=== PATIENT | male | born 1960 | race Caucasian/White ===

== ENCOUNTER → 2017-12-19 | Outpatient (CLI) | payer SELFPAY ==
[2017-12-19 13:26] LABS: ABSOLUTE BASOPHILS # (AUTO) 0.1 10^3/uL (0.0-0.2); ABSOLUTE EOSINOPHILS # (AUTO) 0.3 10^3/uL (0.0-0.6); ABSOLUTE LYMPHOCYTES (AUTO) 2.1 10^3/uL (0.5-4.7); ABSOLUTE MONOCYTES (AUTO) 0.5 10^3/uL (0.1-1.4); ABSOLUTE NEUT (AUTO) 4.4 10^3/uL (1.7-8.2); BASOPHILS % (AUTO) 1.1 % (0-2); HEMATOCRIT 46.4 % (37.9-51.0); HEMOGLOBIN 15.7 g/dL (13.5-17.0); LYMPHOCYTES % (AUTO) 28.5 % (13-45); MEAN CORPUSCULAR HGB CONC 33.9 g/dL (32.0-36.0); MEAN CORPUSCULAR VOLUME 85 fl (80-97); MONOCYTES % (AUTO) 7.2 % (3-13); PLATELET COUNT 227 10^3/uL (150-450); RED BLOOD COUNT 5.44 10^6/uL (4.35-5.55); RED CELL DISTRIBUTION WIDTH 14.7 % (11.5-14.0); SEGMENTED NEUTROPHILS % (AUTO) 59.2 % (42-78); TOTAL CELLS COUNTED % (AUTO) 100 %; WHITE BLOOD COUNT 7.5 10^3/uL (4.0-10.5)
[2017-12-19 13:44] LABS: ALANINE AMINOTRANSFERASE 24 U/L (21-72); ALBUMIN 3.9 g/dL (3.5-5.0); ALKALINE PHOSPHATASE 79 U/L (38-126); ANION GAP 10 (5-19); ASPARTATE AMINO TRANSFERASE 15 U/L (17-59); BILIRUBIN,DIRECT 0.6 mg/dL (0.0-0.4); BILIRUBIN,TOTAL 1.5 mg/dL (0.2-1.3); BLOOD UREA NITROGEN 14 mg/dL (7-20); CALCIUM 9.6 mg/dL (8.4-10.2); CARBON DIOXIDE 26 mmol/L (22-30); CHLORIDE 102 mmol/L (98-107); CHOLESTEROL 134.29 mg/dL (0-200); GLUCOSE 244 mg/dL (75-110); POTASSIUM 4.3 mmol/L (3.6-5.0); SODIUM 138.2 mmol/L (137-145); TOTAL PROTEIN 7.1 g/dL (6.3-8.2); TRIGLYCERIDES 120 mg/dL (<150)
[2017-12-19 13:55] LABS: DIRECT LDL 89 mg/dL (<100)
--- NOTE | 2017-12-19 14:18 | RADIOLOGY REPORT (SQ) ---
EXAM DESCRIPTION: SHOULDER RIGHT 2 OR MORE VIEWS COMPLETED DATE/TIME: 12/19/2017 12:54 pm REASON FOR STUDY: M25.511 PAIN IN RIGHT SHOULDER M25.511 PAIN IN RIGHT SHOULDER COMPARISON: None. NUMBER OF VIEWS: Three views. TECHNIQUE: Internal rotation, external rotation, and Y view images acquired of the right shoulder. LIMITATIONS: None. FINDINGS: MINERALIZATION: Normal. BONES: No acute fracture or dislocation. No worrisome bone lesions. No significant osteophytes. GLENOHUMERAL JOINT: No significant findings. ACROMIOCLAVICULAR JOINT: No large osteophytes. SOFT TISSUES: No calcifications. VISUALIZED RIBS, SPINE, AND LUNG: No other significant finding. OTHER: No other significant finding. IMPRESSION: NEGATIVE STUDY OF THE RIGHT SHOULDER. NO EXPLANATION FOR PAIN. TECHNICAL DOCUMENTATION: JOB ID: [id number] [employer]- All Rights Reserved Reading location - IP/workstation name: [email or web address]
== END ==
LOC: RAD 12:38
DX: Z00.00 Encounter for general adult medical examination without abnormal findings (principal); M25.511 Pain in right shoulder
CPT/HCPCS: 36415; 80053; 80061; 83036; 84153; 84443; 85025

== ENCOUNTER → 2018-09-12 | Outpatient (CLI) | payer OTHER | LOC: OD 10:41 | DX: E11.8 Type 2 diabetes mellitus with unspecified complications (principal) | CPT/HCPCS: 36415; 83036 ==

== ENCOUNTER → 2018-12-20 | Outpatient (CLI) | payer OTHER ==
[2018-12-20 09:49] LABS: ABSOLUTE BASOPHILS # (AUTO) 0.1 10^3/uL (0.0-0.2); ABSOLUTE EOSINOPHILS # (AUTO) 0.2 10^3/uL (0.0-0.6); ABSOLUTE LYMPHOCYTES (AUTO) 1.8 10^3/uL (0.5-4.7); ABSOLUTE MONOCYTES (AUTO) 0.6 10^3/uL (0.1-1.4); ABSOLUTE NEUT (AUTO) 4.7 10^3/uL (1.7-8.2); BASOPHILS % (AUTO) 0.9 % (0-2); EOSINOPHILS % (AUTO) 2.6 % (0-6); HEMATOCRIT 43.6 % (37.9-51.0); HEMOGLOBIN 14.6 g/dL (13.5-17.0); LYMPHOCYTES % (AUTO) 24.6 % (13-45); MEAN CORPUSCULAR HEMOGLOBIN 30.7 pg (27.0-33.4); MEAN CORPUSCULAR HGB CONC 33.5 g/dL (32.0-36.0); MEAN CORPUSCULAR VOLUME 92 fl (80-97); MONOCYTES % (AUTO) 7.6 % (3-13); PLATELET COUNT 244 10^3/uL (150-450); RED BLOOD COUNT 4.77 10^6/uL (4.35-5.55); RED CELL DISTRIBUTION WIDTH 15.3 % (11.5-14.0); SEGMENTED NEUTROPHILS % (AUTO) 64.3 % (42-78); TOTAL CELLS COUNTED % (AUTO) 100 %; WHITE BLOOD COUNT 7.3 10^3/uL (4.0-10.5)
[2018-12-20 10:05] LABS: GLUCOSE 120 mg/dL (75-110); POTASSIUM 4.7 mmol/L (3.6-5.0); TOTAL PROTEIN 7.1 g/dL (6.3-8.2)
[2018-12-20 10:06] LABS: ALANINE AMINOTRANSFERASE 13 U/L (21-72); ALKALINE PHOSPHATASE 62 U/L (38-126); ANION GAP 10 (5-19); ASPARTATE AMINO TRANSFERASE 13 U/L (17-59); BILIRUBIN,DIRECT 0.5 mg/dL (0.0-0.4); BILIRUBIN,TOTAL 1.1 mg/dL (0.2-1.3); BLOOD UREA NITROGEN 15 mg/dL (7-20); CALCIUM 10.2 mg/dL (8.4-10.2); CARBON DIOXIDE 28 mmol/L (22-30); CHLORIDE 105 mmol/L (98-107); SODIUM 142.8 mmol/L (137-145)
== END ==
LOC: CCC 09:10
DX: Z00.00 Encounter for general adult medical examination without abnormal findings (principal)
CPT/HCPCS: 36415; 80053; 83036; 84443; 85025

== ENCOUNTER 2019-04-02 16:22 | Inpatient (IN) | payer SELFPAY ==
--- NOTE | 2019-04-02 17:22 | ER Document Report ---
ED Medical Screen (RME) - General Chief Complaint: Chest Pain Stated Complaint: CHEST PAIN Time Seen by Provider: 04/02/19 16:54 Primary Care Provider: [facility] [Primary Care Provider] - Follow up as needed Mode of Arrival: Wheelchair Information source: Patient Notes: Patient is a 4-year-old male with past medical history of quadruple bypass and multiple stent placements presented to the emergency department chief complaint of midsternal chest pain with nausea and shortness of breath that began around 1 PM this afternoon. Patient reports he does not have insurance so he has not seen a police detective in some time. He states that most [place]. He states the pain feels similar to when he had his heart attacks in the past. Exam: Patient calm, cooperative, alert and answering all questions appropriately. No acute distress noted. Heart sounds S1-S2 present with no ectopy noted. Lung sounds clear and equal bilaterally. I have greeted and performed a rapid initial assessment of this patient. A comprehensive ED assessment and evaluation of the patient, analysis of test results and completion of the medical decision making process will be conducted by additional ED providers. I have specifically instructed the patient or family members with the patient to immediately return to any nursing staff jeffrey uld anything change in the patient's condition or with their chief complaint. This medical record was dictated with voice recognizing software. There may be grammatical, syntax errors that are unintended. TRAVEL OUTSIDE OF THE [place] IN LAST 30 DAYS: No - Related Data Allergies/Adverse Reactions: aspirin Allergy (Mild, Verified 04/02/19 16:25) Past Medical History - Social History Chew tobacco use (# tins/day): No Frequency of alcohol use: None Drug Abuse: None Physical Exam - Vital signs Vitals: Temp Pulse Resp BP Pulse Ox 98.3 F 80 21 H 109/83 94 04/02/19 16:37 04/02/19 16:37 04/02/19 16:37 04/02/19 16:37 04/02/19 16:37 Course - Vital Signs Vital signs: Temp Pulse Resp BP Pulse Ox 98.3 F 80 21 H 109/83 94 04/02/19 16:37 04/02/19 16:37 04/02/19 16:37 04/02/19 16:37 04/02/19 16:37 Doctor's Discharge - Discharge Referrals: [facility] [Primary Care Provider] - Follow up as needed
[2019-04-02] MEDS ORDERED: NITROGLYCERIN 0.4 MG/TAB 25 TAB/BOTTLE SL PRN (18:22)
--- NOTE | 2019-04-02 18:29 | ER Document Report ---
ED General - General Chief Complaint: Chest Pain Stated Complaint: CHEST PAIN Time Seen by Provider: 04/02/19 16:54 Primary Care Provider: [facility] [NO LOCAL MD] - Follow up as needed Mode of Arrival: Wheelchair Notes: 58-year-old male with history of ICD/pacemaker, congestive heart failure and multiple MIs all in [place], presents with burning chest pain that goes to his back gradual onset and shortness of breath. Started earlier today is not sure what time. Is been constant. He is also had decreased exercise tolerance and increased leg swelling the point where he sits in a recliner all day. He does not have a primary care or ribber here. He states compliance with meds including water pill. Unknown last catheterization. TRAVEL OUTSIDE OF THE [place] IN LAST 30 DAYS: No - Related Data Allergies/Adverse Reactions: aspirin Allergy (Mild, Verified 04/02/19 17:21) Anaphylaxis Penicillins Allergy (Verified 04/02/19 17:21) Past Medical History - General Information source: Patient - Social History Smoking Status: Former Smoker Chew tobacco use (# tins/day): No Frequency of alcohol use: None Drug Abuse: None Family History: None Patient has suicidal ideation: No Patient has homicidal ideation: No Review of Systems - Review of Systems Notes: REVIEW OF SYSTEMS GEN: Denies fever, chills, weight loss ENT: Denies sore throat, nasal discharge, ear pain EYES: Denies blurry vision, eye pain, discharge CV: See HPI RESP: See HPI GI: Denies abdominal pain, nausea, vomiting, diarrhea MSK: Denies joint pain/swelling, edema, SKIN: Denies rash, skin lesions LYMPH: Denies swollen glands/lymph nodes NEURO: Denies headache, focal weakness or numbness, dizziness PSYCH: Denies depression, suicidal or homicidal ideation PHYSICAL EXAMINATION General: No acute distress, well-nourished Head: Atraumatic, normocephalic ENT: Mouth normal, oropharynx moist, no exudates or tonsillar enlargement Eyes: Conjunctiva normal, pupils equal, lids normal Neck: No JVD, supple, no guarding CVS: Normal rate, regular rhythm, no murmurs Resp: Sounds left GI: Nondistended, soft, no tenderness to palpation, no rebound or guarding Ext: No deformities, mild bilateral pitting edema, normal range of motion in upper and lower ext Back: No CVA or midline TTP Skin: No rash, warm Lymphatic: No lymphadeopathy noted Neuro: Awake, alert. Face symmetric. GCS 15. Physical Exam - Vital signs Vitals: Temp Pulse Resp BP Pulse Ox 98.3 F 80 21 H 109/83 94 04/02/19 16:37 04/02/19 16:37 04/02/19 16:37 04/02/19 16:37 04/02/19 16:37 Course - Re-evaluation Re-evalutation: 04/02/19 19:44 Patient with CHF and ICD presents with worsening dyspnea on exertion orthopnea, recliner confined. Also burning chest pain similar to past MIs. ECG low voltage but no acute ischemia. Troponin normal. BNP grossly elevated. Left pleural effusion and cardiomegaly on x-ray. Symptoms not consistent with PE or pneumonia. No fever no white count. Bedside echo shows decreased EF and left pleural effusion. Discussed with Vito Simons for admission, IV Lasix given. - Vital Signs Vital signs: Temp Pulse Resp BP Pulse Ox 98.3 F 80 25 H 123/88 H 92 04/02/19 16:37 04/02/19 16:37 04/02/19 19:01 04/02/19 19:01 04/02/19 19:01 - Laboratory Result Diagrams: 04/02/19 17:40 04/02/19 17:40 Laboratory results interpreted by me: 04/02/19 04/02/19 04/02/19 17:40 17:40 17:40 RDW 16.3 H Sodium 136.7 L Chloride 96 L Total Bilirubin 2.4 H Direct Bilirubin 1.0 H NT-Pro-B Natriuret Pep 7800 H - Diagnostic Test Radiology reviewed: Image reviewed, Reports reviewed Discharge - Discharge Clinical Impression: Recurrent left pleural effusion Congestive heart failure (CHF) Qualifiers: Heart failure type: unspecified Heart failure chronicity: chronic Qualified Code(s): I50.9 - Heart failure, unspecified Condition: Fair Disposition: ADMITTED INPATIENT Admitting Provider: Ronak (Hospitalist) Unit Admitted: IMCU Referrals: [facility] [NO LOCAL MD] - Follow up as needed
--- NOTE | 2019-04-02 18:40 | RADIOLOGY REPORT (SQ) ---
EXAM DESCRIPTION: CHEST SINGLE VIEW COMPLETED DATE/TIME: 04/02/2019 6:24 pm REASON FOR STUDY: chest pain, shortness of breath COMPARISON: None EXAM PARAMETERS: NUMBER OF VIEWS: One view. TECHNIQUE: Single frontal radiographic view of the chest acquired. RADIATION DOSE: NA LIMITATIONS: None. FINDINGS: LUNGS AND PLEURA: Marked opacification the left base. The left hemidiaphragm is indistinc t. Cannot exclude a large left pleural effusion. MEDIASTINUM AND HILAR STRUCTURES: No masses. Contour normal. HEART AND VASCULAR STRUCTURES: Cardiomegaly. No miranda pulmonary edema. BONES: No acute findings. HARDWARE: Sternotomy wires. Subcutaneous implantable cardioverter/defibrillator. OTHER: No other significant finding. IMPRESSION: Cardiomegaly with no miranda pulmonary edema. Cannot exclude a large left pleural effusio n. Cannot exclude airspace disease in the left lower lobe. TECHNICAL DOCUMENTATION: JOB ID: [id number] [employer]- All Rights Reserved Reading location - IP/workstation name: [email or web address]
[2019-04-02 18:41] LABS: ABSOLUTE BASOPHILS # (AUTO) 0.1 10^3/uL (0.0-0.2); ABSOLUTE EOSINOPHILS # (AUTO) 0.2 10^3/uL (0.0-0.6); ABSOLUTE LYMPHOCYTES (AUTO) 1.5 10^3/uL (0.5-4.7); ABSOLUTE MONOCYTES (AUTO) 0.8 10^3/uL (0.1-1.4); ABSOLUTE NEUT (AUTO) 7.5 10^3/uL (1.7-8.2); BASOPHILS % (AUTO) 0.9 % (0-2); EOSINOPHILS % (AUTO) 1.6 % (0-6); HEMATOCRIT 49.3 % (37.9-51.0); HEMOGLOBIN 16.7 g/dL (13.5-17.0); MEAN CORPUSCULAR HEMOGLOBIN 30.2 pg (27.0-33.4); MEAN CORPUSCULAR HGB CONC 33.9 g/dL (32.0-36.0); MEAN CORPUSCULAR VOLUME 89 fl (80-97); MONOCYTES % (AUTO) 7.6 % (3-13); PLATELET COUNT 416 10^3/uL (150-450); RED BLOOD COUNT 5.55 10^6/uL (4.35-5.55); RED CELL DISTRIBUTION WIDTH 16.3 % (11.5-14.0); SEGMENTED NEUTROPHILS % (AUTO) 74.9 % (42-78); TOTAL CELLS COUNTED % (AUTO) 100 %; WHITE BLOOD COUNT 10.1 10^3/uL (4.0-10.5)
[2019-04-02 18:52] LABS: ALBUMIN 4.1 g/dL (3.5-5.0); ALKALINE PHOSPHATASE 92 U/L (38-126); ANION GAP 13 (5-19); ASPARTATE AMINO TRANSFERASE 26 U/L (17-59); BILIRUBIN,TOTAL 2.4 mg/dL (0.2-1.3); BLOOD UREA NITROGEN 14 mg/dL (7-20); CALCIUM 9.5 mg/dL (8.4-10.2); CARBON DIOXIDE 28 mmol/L (22-30); CHLORIDE 96 mmol/L (98-107); GLUCOSE 99 mg/dL (75-110); POTASSIUM 4.5 mmol/L (3.6-5.0); TOTAL PROTEIN 7.8 g/dL (6.3-8.2)
[2019-04-02 19:02] LABS: TROPONIN I 0.024 ng/mL
[2019-04-02] MEDS ORDERED: FUROSEMIDE INJ/PF 40 MG/4 ML SDV IV ONE (19:14)
[2019-04-02] MEDS ORDERED: ACETAMINOPHEN 325 MG TABLET PO PRN (19:44)
[2019-04-02] MEDS ORDERED: MAG HYDROX/AL HYDROX/SIMETH SUSP 30 ML UDCUP PO PRN (19:44)
[2019-04-02] MEDS ORDERED: GLUCAGON,HUMAN RECOMB 1 MG INJ IM PRN (19:47)
[2019-04-02] MEDS ORDERED: DEXTROSE 40% GEL 15 GM TUBE PO PRN ×2 (19:47)
[2019-04-02] MEDS ORDERED: DEXTROSE 50%-WATER 25 GM/50 ML DISP.SYRIN IV PRN ×2 (19:47)
--- NOTE | 2019-04-02 20:56 | EKG REPORT ---
SEVERITY:- ABNORMAL ECG - SINUS RHYTHM VENTRICULAR PREMATURE COMPLEX PROBABLE LEFT ATRIAL ABNORMALITY LOW VOLTAGE IN FRONTAL LEADS CONSIDER INFERIOR INFARCT NONSPECIFIC T ABNORMALITIES, LATERAL LEADS : Confirmed by: Kelly Reyes MD 02-Apr-2019 20:55:42
--- NOTE | 2019-04-02 21:50 | XCELERA REPORT ---
[address] [address] Transthoracic Echocardiogram Report Name: JANUSZ SCHULTZ Age: 58 yrs Gender: Male : 1960 Patient Status: Inpatient Patient Location: [place] [address]^A Study Date: 04/02/2019 08:07 PM Height: 67 in Weight: 220 lb BSA: 2.1 m2 Procedure: A two-dimensional transthoracic echocardiogram with color flow and Doppler was performed. Study Quality: Poor. Reason For Study: systolic m History: SYSTOLIC MURMUR. Ordering Physician: ORA CLOUD Performed By: Rach Doss Interpretation Summary The left ventricle is moderately dilated. There is normal left ventricular wall thickness. LV EF is Less than 20% Left ventricular systolic function is severely reduced. LV diastolic function not assessed. There is severe global hypokinesis of the left ventricle. There is a calcified thrombus which is non mobile in yhr LV apex.Cannot assess VSD ,ASD ,or PFO. The left atrium is mildly dilated. There is no evidence of mitral valve prolapse. There is no mitral valve stenosis. There is a trace amount of mitral regurgitation There is no aortic valve stenosis No aortic regurgitation is present. There is no tricuspid stenosis. There is a trace amount of tricuspid regurgitation There is mild pulmonary hypertension by echo RVSP is 43 to 48 mm of with RA mean of 5 to 10. There is no pulmonic valvular stenosis. There is no pulmonic valvular regurgitation. The inferior vena cava appeared normal and decreased > 50% with respiration (RAP 5-10 mmHg) There is no pericardial effusion. Large left pleural effusion. MMode/2D Measurements & Calculations RVDd: 2.2 cm LVIDd: 5.6 cm FS: 12.5 % Ao root diam: 3.1 cm IVSd: 0.91 cm LVIDs: 4.9 cm EDV(Teich): 153.1 ml Ao root area: 7.7 cm2 LVPWd: 0.94 cm ESV(Teich): 112.3 ml LA dimension: 3.7 cm EF(Teich): 26.7 % Doppler Measurements & Calculations MV E max yue: MV P1/2t max yue: Ao V2 max: LV V1 max P.0 cm/sec 82.5 cm/sec 87.7 cm/sec 1.2 mmHg MV A max yue: MV P1/2t: 36.5 msec Ao max P.1 mmHg LV V1 max: 51.8 cm/sec MVA(P1/2t): 6.0 cm2 54.9 cm/sec MV E/A: 1.5 MV dec slope: 662.6 cm/sec2 MV dec time: 0.13 sec PA V2 max: TR max yue: MV P1/2t-pr_phl: 65.2 cm/sec 306.2 cm/sec 36.5 msec PA max P.7 mmHgTR max P.5 mmHg Left Ventricle The left ventricle is moderately dilated. There is normal left ventricular wall thickness. LV EF is Less than 20%. Left ventricular systolic function is severely reduced. LV diastolic function not assessed. There is severe global hypokinesis of the left ventricle. There is a calcified thrombus which is non mobile in yhr LV apex.Cannot assess VSD ,ASD ,or PFO. Right Ventricle The right ventricle is not well visualized secondary to technical limitations. Atria Right atrium not well visualized secondary to technical limitations. The left atrium is mildly dilated. Mitral Valve There is no evidence of mitral valve prolapse. There is no vegetation seen on the mitral valve. There is no mitral valve stenosis. There is a trace amount of mitral regurgitation. Aortic Valve There is no aortic valve stenosis. No aortic regurgitation is present. Tricuspid Valve There is no tricuspid stenosis. There is a trace amount of tricuspid regurgitation. There is mild pulmonary hypertension by echo. RVSP is 43 to 48 mm of with RA mean of 5 to 10. Pulmonic Valve There is no pulmonic valvular stenosis. There is no pulmonic valvular regurgitation. Great Vessels The aortic root is not well visualized but is probably normal size. The inferior vena cava appeared normal and decreased > 50% with respiration (RAP 5-10 mmHg). Effusions There is no pericardial effusion. Large left pleural effusion. : ORA CLOUD Lakshmi
[2019-04-02] MEDS: INSULIN LISPRO 100 UNIT/ML 3 ML VIAL SUBCUT SCH (21:59)
[2019-04-02] MEDS: HEPARIN SOD (PORCINE) 5,000 UNIT/ML 1 ML VIAL SUBCUT SCH (22:33)
[2019-04-02] MEDS: FUROSEMIDE INJ/PF 40 MG/4 ML SDV IV SCH (22:34)
[2019-04-02] MEDS: POTASSIUM CHLORIDE 10 MEQ CAPSULE.ER PO SCH (22:35)
[2019-04-02 22:39] LABS: URINE AMPHETAMINES SCREEN NEGATIVE; URINE BARBITURATES SCREEN NEGATIVE; URINE BENZODIAZEPINES SCREEN NEGATIVE; URINE COCAINE SCREEN NEGATIVE; URINE MARIJUANA (THC) SCREEN NEGATIVE; URINE METHADONE SCREEN NEGATIVE; URINE PHENCYCLIDINE SCREEN NEGATIVE
[2019-04-03 00:27] LABS: CREATINE KINASE MB 1.22 ng/mL (<4.55); TROPONIN I 0.019 ng/mL
--- NOTE | 2019-04-03 01:45 | PDOC H&P ---
History of Present Illness Admission Date/PCP: 04/02/19 19:53 ORA CLOUD MD Patient complains of: Shortness of breath and fatigue History of Present Illness: JANUSZ SCHULTZ is a 58 year old male with a past medical history of diabetes, hypertension, coronary artery disease and congestive heart failure status post AICD. He presents with 3 or 4 days of exertional shortness of breath, orthopnea and leg edema. In the emergency room is found to have a large left-sided pleural effusion and a BNP of 7800. He receives IV Lasix and referred to the hospitalist for admission. Patient admits diet, medication and lifestyle indiscretion. He denies sleep apnea, chest pain nausea vomiting diaphoresis or palpitations. He cannot recall a recent echocardiogram. Past Medical History Cardiac Medical History: Reports: Atrial Fibrillation, Congestive Heart Failure, Myocardial Infarction, Hyperlipidema Endocrine Medical History: Reports: Diabetes Mellitus Type 2 Past Surgical History Past Surgical History: Reports: Cardiac Catheterization Social History Smoking Status: Former Smoker Family History Family History: CAD, Hypertension Parental Family History Reviewed: Yes Children Family History Reviewed: Yes Sibling(s) Family History Reviewed.: Yes Medication/Allergy Allergies/Adverse Reactions: aspirin Allergy (Mild, Verified 04/02/19 17:21) Anaphylaxis Penicillins Allergy (Verified 04/02/19 17:21) Review of Systems Constitutional: PRESENT: as per HPI, fatigue, weakness, weight gain. ABSENT: chills, fever(s), headache(s), weight loss Eyes: ABSENT: visual disturbances Ears: ABSENT: hearing changes Cardiovascular: PRESENT: as per HPI, dyspnea on exertion, edema, orthropnea. ABSENT: chest pain, palpitations Respiratory: ABSENT: cough, hemoptysis Gastrointestinal: ABSENT: abdominal pain, constipation, diarrhea, hematemesis, hematochezia, nausea, vomiting Genitourinary: ABSENT: dysuria, hematuria Musculoskeletal: ABSENT: joint swelling Integumentary: ABSENT: rash, wounds Neurological: ABSENT: abnormal gait, abnormal speech, confusion, dizziness, focal weakness, syncope Psychiatric: ABSENT: anxiety, depression, homidical ideation, suicidal ideation Endocrine: ABSENT: cold intolerance, heat intolerance, polydipsia, polyuria Hematologic/Lymphatic: ABSENT: easy bleeding, easy bruising Physical Exam Vital Signs: Temp Pulse Resp BP Pulse Ox 97.8 F 81 20 111/69 93 04/03/19 00:16 04/03/19 00:16 04/03/19 00:16 04/03/19 00:16 04/03/19 00:16 Intake & Output 04/01/19 04/02/19 04/03/19 11:59 11:59 11:59 Output Total 0 Balance 0 Weight 99 kg General appearance: PRESENT: cooperative, mild distress, obese. ABSENT: disheveled Head exam: PRESENT: atraumatic, normocephalic Eye exam: PRESENT: conjunctiva pink, EOMI, PERRLA. ABSENT: scleral icterus Ear exam: PRESENT: normal external ear exam Mouth exam: PRESENT: laceration, moist, tongue midline Neck exam: PRESENT: JVD. ABSENT: carotid bruit, lymphadenopathy, thyromegaly Respiratory exam: PRESENT: accessory muscle use, crackles, decreased breath sounds - Left side dullness to percussion, prolonged expiratory phas, retraction. ABSENT: rhonchi Cardiovascular exam: PRESENT: gallop, RRR. ABSENT: diastolic murmur, rubs, systolic murmur Pulses: PRESENT: normal dorsalis pedis pul Vascular exam: PRESENT: normal capillary refill GI/Abdominal exam: PRESENT: normal bowel sounds, soft. ABSENT: distended, guarding, mass, organolmegaly, rebound, tenderness Rectal exam: PRESENT: deferred Extremities exam: PRESENT: full ROM, +1 edema. ABSENT: calf tenderness Neurological exam: PRESENT: alert, awake, oriented to person, oriented to place, oriented to time, oriented to situation, CN II-XII grossly intact. ABSENT: motor sensory deficit Psychiatric exam: PRESENT: appropriate affect, normal mood. ABSENT: homicidal ideation, suicidal ideation Skin exam: PRESENT: dry, intact, warm. ABSENT: cyanosis, rash Results Laboratory Results: 04/02/19 17:40 04/02/19 17:40 04/02/19 04/02/19 04/02/19 17:40 17:40 17:40 WBC 10.1 RBC 5.55 Hgb 16.7 Hct 49.3 MCV 89 MCH 30.2 MCHC 33.9 RDW 16.3 H Plt Count 416 Seg Neutrophils % 74.9 Sodium 136.7 L Potassium 4.5 Chloride 96 L Carbon Dioxide 28 Anion Gap 13 BUN 14 Creatinine 0.87 Est GFR ( Amer) > 60 Glucose 99 Calcium 9.5 Total Bilirubin 2.4 H AST 26 Alkaline Phosphatase 92 Total Protein 7.8 Albumin 4.1 TSH 2.82 04/02/19 04/02/19 04/02/19 17:40 23:47 23:47 Creatine Kinase 38 L CK-MB (CK-2) 1.22 Troponin I 0.024 0.019 NT-Pro-B Natriuret Pep 7800 H Impressions: Chest X-Ray 04/02/19 17:21 IMPRESSION: Cardiomegaly with no miranda pulmonary edema. Cannot exclude a large left pleural effusion. Cannot exclude airspace disease in the left lower lobe. Assessment and Plan - Diagnosis (1) Congestive heart failure (CHF) Qualifiers: Heart failure type: unspecified Heart failure chronicity: chronic Qu alified Code(s): I50.9 - Heart failure, unspecified Is this a current diagnosis for this admission?: Yes Plan: Decompensated secondary to noncompliance. IV Lasix, potassium, resume PALMIRA inhibitor and beta-aiden as tolerated follow-up 2D echo. Education ordered (2) Recurrent left pleural effusion Is this a current diagnosis for this admission?: Yes Plan: Secondary to #1, attempt diuresis but will likely require thoracentesis. (3) Diabetes Qualifiers: Diabetes mellitus type: type 2 Is this a current diagnosis for this admission?: Yes Plan: Petra sliding scale, follow-up A1c - Time Time Spent with patient: 25-34 minutes - Inpatient Certification Medical Necessity: Need Close Monitoring Due to Risk of Patient Decompensation
[2019-04-03] MEDS: HEPARIN SOD (PORCINE) 5,000 UNIT/ML 1 ML VIAL SUBCUT SCH ×3 (05:52→21:14)
[2019-04-03 06:40] LABS: ABSOLUTE EOSINOPHILS # (AUTO) 0.2 10^3/uL (0.0-0.6); ABSOLUTE LYMPHOCYTES (AUTO) 1.7 10^3/uL (0.5-4.7); ABSOLUTE MONOCYTES (AUTO) 0.9 10^3/uL (0.1-1.4); ABSOLUTE NEUT (AUTO) 6.1 10^3/uL (1.7-8.2); BASOPHILS % (AUTO) 0.5 % (0-2); HEMATOCRIT 45.7 % (37.9-51.0); HEMOGLOBIN 15.5 g/dL (13.5-17.0); LYMPHOCYTES % (AUTO) 18.6 % (13-45); MEAN CORPUSCULAR HEMOGLOBIN 30.2 pg (27.0-33.4); MEAN CORPUSCULAR HGB CONC 33.8 g/dL (32.0-36.0); MEAN CORPUSCULAR VOLUME 89 fl (80-97); MONOCYTES % (AUTO) 10.3 % (3-13); PLATELET COUNT 379 10^3/uL (150-450); RED BLOOD COUNT 5.13 10^6/uL (4.35-5.55); RED CELL DISTRIBUTION WIDTH 15.9 % (11.5-14.0); SEGMENTED NEUTROPHILS % (AUTO) 68.6 % (42-78); TOTAL CELLS COUNTED % (AUTO) 100 %; WHITE BLOOD COUNT 8.9 10^3/uL (4.0-10.5)
[2019-04-03 07:01] LABS: ANION GAP 10 (5-19); BLOOD UREA NITROGEN 15 mg/dL (7-20); CARBON DIOXIDE 27 mmol/L (22-30); CHLORIDE 99 mmol/L (98-107); CREATINE KINASE 33 U/L (55-170); GLUCOSE 111 mg/dL (75-110); POTASSIUM 4.4 mmol/L (3.6-5.0)
[2019-04-03 07:10] LABS: CREATINE KINASE MB 1.06 ng/mL (<4.55); TROPONIN I 0.023 ng/mL
[2019-04-03] MEDS: INSULIN LISPRO 100 UNIT/ML 3 ML VIAL SUBCUT SCH ×3 (08:23→16:12)
[2019-04-03] MEDS: RAMIPRIL 5 MG CAPSULE PO SCH (09:36)
[2019-04-03] MEDS: DOCUSATE SODIUM 100 MG CAPSULE PO SCH (09:37)
[2019-04-03] MEDS: POTASSIUM CHLORIDE 10 MEQ CAPSULE.ER PO SCH ×2 (09:37→21:13)
[2019-04-03] MEDS: METOPROLOL TARTRATE 25 MG TABLET PO SCH ×2 (09:38→21:13)
[2019-04-03] MEDS: FUROSEMIDE INJ/PF 40 MG/4 ML SDV IV SCH ×2 (09:39→21:13)
[2019-04-03] MEDS: NITROGLYCERIN 5 MG (0.2 MG/HR) PATCH.TD24 TD SCH (09:39)
[2019-04-03 11:07] LABS: INTERNATIONAL RATION (INR) 1.24; PROTHROMBIN TIME 15.7 SEC (11.4-15.4)
[2019-04-03 12:25] LABS: CREATINE KINASE MB 1.07 ng/mL (<4.55); TROPONIN I 0.016 ng/mL
--- NOTE | 2019-04-03 15:34 | RADIOLOGY REPORT (SQ) ---
EXAM DESCRIPTION: CHEST SINGLE VIEW COMPLETED DATE/TIME: 04/03/2019 3:08 pm REASON FOR STUDY: LT PLEURA EFFUSION COMPARISON: AP view of the chest from 04/02/2019. NUMBER OF VIEWS: One view. TECHNIQUE: Single frontal radiographic view of the chest acquired. LIMITATIONS: None. FINDINGS: The left pleural effusion has decreased in size post thoracentesis. There is no postproce dural pneumothorax. The cardiac silhouette is enlarged. The mediastinal contours and and hilar cont ours are unchanged. The pulmonary vasculature is within normal limits. There are sternotomy wires a nd an ICD in place. IMPRESSION: Decrease in the size of the left pleural effusion post thoracentesis. There is no postp rocedural pneumothorax. TECHNICAL DOCUMENTATION: JOB ID: [id number] [employer]- All Rights Reserved Reading location - IP/workstation name: [email or web address]
--- NOTE | 2019-04-03 15:36 | RADIOLOGY REPORT (SQ) ---
EXAM DESCRIPTION: U/S THORACENTESIS WITH IMAGING COMPLETED DATE/TIME: 04/03/2019 3:06 pm REASON FOR STUDY: Therapeutic and diagnostic COMPARISON: AP view of the chest from 04/02/2019. LIMITATIONS: None. PROCEDURE: Procedure, risks, benefit, and alternative explained to patient who then gave written con sent. The posterior left chest wall was marked using ultrasound guidance. A time-out was called for correct marking verification. Chest prepped and draped using sterile technique. Local anesthesia ac hieved using 10 ml of 1% lidocaine injection. A 6 Fr Safe-T- Centesis set was introduced into the le ft pleural space. Fluid was aspirated. The catheter was removed and the entry site was covered with sterile bandage. No immediate complications noted. Images acquired during the procedure were stored on PACS. FINDINGS: ENTRY SITE: Posterior left chest. FLUID VOLUME: 1000 mL. FLUID ANALYSIS: Straw-colored. OTHER: Fluid sent to the lab for testing. IMPRESSION: SUCCESSFUL THORACENTESIS USING ULTRASOUND GUIDANCE. COMMENT: Patient medication list reviewed: Yes- Quality ID# [id number]:Eligible professional attests to doc umenting in the medical record they obtained, updated, or reviewed the patient's current medications. TECHNICAL DOCUMENTATION: JOB ID: [id number] [employer] All Rights Reserved Reading location - IP/workstation name: [email or web address]
--- NOTE | 2019-04-03 16:21 | PDOC PROGRESS REPORT ---
Subjective Progress Note for:: 04/03/19 Subjective:: No adverse events overnight. He feels like he is breathing a little bit better. He was quite talkative. 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 He said that his previous hospitalization was at [facility] in [place], [place], and also at [facility] prior to that. He said that he had insurance when he was in [place] but since he has come down here it did not transfer with him. He said that he will be able to get insurance as of June 23 of this year. Reason For Visit: HEART FAILURE C PLEURAL EFF Physical Exam Vital Signs: Temp Pulse Resp BP Pulse Ox 97.4 F 66 16 91/62 L 94 04/03/19 12:28 04/03/19 12:28 04/03/19 12:28 04/03/19 12:28 04/03/19 12:28 Intake & Output 04/02/19 04/03/19 04/04/19 06:59 06:59 06:59 Output Total 550 Balance -550 Weight 99 kg General appearance: PRESENT: no acute distress, cooperative, disheveled, obese Neck exam: ABSENT: JVD Respiratory exam: PRESENT: decreased breath sounds - Left side of his chest, unlabored. ABSENT: accessory muscle use, chest wall tenderness, crackles, prolonged expiratory phas, rhonchi, symmetrical, tachypnea, wheezes Cardiovascular exam: PRESENT: RRR, +S1, +S2 Pulses: PRESENT: normal carotid pulses Vascular exam: PRESENT: normal capillary refill GI/Abdominal exam: PRESENT: normal bowel sounds, soft. ABSENT: distended, guarding, rebound, tenderness Extremities exam: PRESENT: pedal edema, +2 edema - Ankles and pretibial areas. ABSENT: clubbing Musculoskeletal exam: PRESENT: normal inspection. ABSENT: deformity Neurological exam: PRESENT: alert, awake, oriented to person, oriented to place, oriented to time, oriented to situation Psychiatric exam: PRESENT: appropriate affect, normal mood Skin exam: PRESENT: dry, warm Results Laboratory Results: 04/03/19 05:38 04/03/19 05:38 04/02/19 04/02/19 04/02/19 17:40 17:40 17:40 WBC 10.1 RBC 5.55 Hgb 16.7 Hct 49.3 MCV 89 MCH 30.2 MCHC 33.9 RDW 16.3 H Plt Count 416 Seg Neutrophils % 74.9 Sodium 136.7 L Potassium 4.5 Chloride 96 L Carbon Dioxide 28 Anion Gap 13 BUN 14 Creatinine 0.87 Est GFR ( Amer) > 60 Glucose 99 Calcium 9.5 Total Bilirubin 2.4 H AST 26 Alkaline Phosphatase 92 Total Protein 7.8 Albumin 4.1 TSH 2.82 04/03/19 04/03/19 05:38 05:38 WBC 8.9 RBC 5.13 Hgb 15.5 Hct 45.7 MCV 89 MCH 30.2 MCHC 33.8 RDW 15.9 H Plt Count 379 Seg Neutrophils % 68.6 Sodium 136.3 L Potassium 4.4 Chloride 99 Carbon Dioxide 27 Anion Gap 10 BUN 15 Creatinine 0.87 Est GFR ( Amer) > 60 Glucose 111 H Calcium 9.0 Total Bilirubin AST Alkaline Phosphatase Total Protein Albumin TSH 04/02/19 04/02/19 04/02/19 17:40 23:47 23:47 Creatine Kinase 38 L CK-MB (CK-2) 1.22 Troponin I 0.024 0.019 NT-Pro-B Natriuret Pep 7800 H 04/03/19 04/03/19 04/03/19 05:38 05:38 11:38 Creatine Kinase 33 L 35 L CK-MB (CK-2) 1.06 Troponin I 0.023 NT-Pro-B Natriuret Pep 04/03/19 11:38 Creatine Kinase CK-MB (CK-2) 1.07 Troponin I 0.016 NT-Pro-B Natriuret Pep Impressions: Chest X-Ray 04/03/19 00:00 IMPRESSION: Decrease in the size of the left pleural effusion post thoracentesis. There is no postprocedural pneumothorax. Thoracentesis Ultrasound 04/03/19 00:00 IMPRESSION: SUCCESSFUL THORACENTESIS USING ULTRASOUND GUIDANCE. Assessment and Plan - Diagnosis (1) Congestive heart failure (CHF) Qualifiers: Heart failure type: systolic Heart failure chronicity: acute on chronic Qualified Code(s): I50.23 - Acute on chronic systolic (congestive) heart failure Is this a current diagnosis for this admission?: Yes Plan: He has a defibrillator so he has had this for a while. We are diuresing him and will attempt to medically optimize him. We will try to get his old records to see if we can compare his last echocardiogram to his current one to see if he needs further ischemic work-up. His EF was noted to be 20% and he had global hypokinesis of the left ventricle. He was also noted to have mild to moderate pulmonary hypertension. (2) Diabetes Qualifiers: Diabetes mellitus type: type 2 Is this a current diagnosis for this admission?: Yes Plan: Humalog sliding scale, diabetic diet (3) Recurrent left pleural effusion Is this a current diagnosis for this admission?: Yes Plan: Had a thoracentesis today with 1 L off. Most likely due to his untreated heart failure. - Time Time Spent with patient: 15-24 minutes
--- NOTE | 2019-04-03 17:27 | RADIOLOGY REPORT (SQ) ---
EXAM DESCRIPTION: CHEST SINGLE VIEW COMPLETED DATE/TIME: 04/03/2019 5:14 pm REASON FOR STUDY: LT PLEURA EFFUSION COMPARISON: None. EXAM PARAMETERS: NUMBER OF VIEWS: One view. TECHNIQUE: Single frontal radiographic view of the chest acquired. RADIATION DOSE: NA LIMITATIONS: None. FINDINGS: LUNGS AND PLEURA: No pneumothorax status post thoracentesis. There is considerable opacif ication in the left base. MEDIASTINUM AND HILAR STRUCTURES: No masses. Contour normal. HEART AND VASCULAR STRUCTURES: Cardiomegaly without miranda pulmonary edema. BONES: No acute findings. HARDWARE: Implantable cardioverter/defibrillator appear sternotomy wires. OTHER: No other significant finding. IMPRESSION: No pneumothorax. Considerable opacification in the left base remains. TECHNICAL DOCUMENTATION: JOB ID: [id number] [employer]- All Rights Reserved Reading location - IP/workstation name: [email or web address]
[2019-04-04] MEDS: HEPARIN SOD (PORCINE) 5,000 UNIT/ML 1 ML VIAL SUBCUT SCH ×3 (05:20→21:23)
[2019-04-04 05:21] LABS: INTERNATIONAL RATION (INR) 1.21; PROTHROMBIN TIME 15.4 SEC (11.4-15.4)
[2019-04-04] MEDS: INSULIN LISPRO 100 UNIT/ML 3 ML VIAL SUBCUT SCH ×3 (08:48→16:43)
[2019-04-04] MEDS: DOCUSATE SODIUM 100 MG CAPSULE PO SCH (09:16)
[2019-04-04] MEDS: FUROSEMIDE INJ/PF 40 MG/4 ML SDV IV SCH ×2 (09:19→21:23)
[2019-04-04] MEDS ORDERED: HEPARIN SOD (PORCINE) 5,000 UNIT/ML 1 ML VIAL SUBCUT ONE (09:30)
[2019-04-04 09:34] LABS: ANION GAP 11 (5-19); BLOOD UREA NITROGEN 18 mg/dL (7-20); CALCIUM 9.2 mg/dL (8.4-10.2); CARBON DIOXIDE 26 mmol/L (22-30); CHLORIDE 100 mmol/L (98-107); GLUCOSE 129 mg/dL (75-110); POTASSIUM 4.9 mmol/L (3.6-5.0)
[2019-04-04] MEDS: RAMIPRIL 5 MG CAPSULE PO SCH (10:48)
[2019-04-04] MEDS: NITROGLYCERIN 5 MG (0.2 MG/HR) PATCH.TD24 TD SCH (10:49)
[2019-04-04] MEDS: METOPROLOL TARTRATE 25 MG TABLET PO SCH ×2 (10:49→21:23)
--- NOTE | 2019-04-04 15:24 | PDOC PROGRESS REPORT ---
Subjective Progress Note for:: 04/04/19 Subjective:: No adverse events overnight. No new complaints. Blood pressure was a little low this morning and so we gave him his Lasix but we did give him his 3 other medications that would lower his blood pressure. He says his breathing feels a lot better since the thoracentesis. Reason For Visit: HEART FAILURE C PLEURAL EFF Physical Exam Vital Signs: Temp Pulse Resp BP Pulse Ox 97.6 F 77 16 98/63 L 97 04/04/19 11:47 04/04/19 14:00 04/04/19 11:47 04/04/19 11:47 04/04/19 11:47 Intake & Output 04/03/19 04/04/19 04/05/19 06:59 06:59 06:59 Intake Total 730 Output Total 550 375 Balance -550 355 Weight 99 kg 99.1 kg General appearance: PRESENT: no acute distress, cooperative, disheveled, obese Neck exam: ABSENT: JVD Respiratory exam: PRESENT: decreased breath sounds - Left base, crackles left base, unlabored. ABSENT: accessory muscle use, chest wall tenderness, prolonged expiratory phas, rhonchi, symmetrical, tachypnea, wheezes Cardiovascular exam: PRESENT: RRR, +S1, +S2 Pulses: PRESENT: normal carotid pulses Vascular exam: PRESENT: normal capillary refill GI/Abdominal exam: PRESENT: normal bowel sounds, soft. ABSENT: distended, guarding, rebound, tenderness Extremities exam: PRESENT: pedal edema, +2 edema - Ankles and pretibial areas. ABSENT: clubbing Musculoskeletal exam: PRESENT: normal inspection. ABSENT: deformity Neurological exam: PRESENT: alert, awake, oriented to person, oriented to place, oriented to time, oriented to situation Psychiatric exam: PRESENT: appropriate affect, normal mood Skin exam: PRESENT: dry, warm Results Laboratory Results: 04/03/19 05:38 04/04/19 04:26 04/04/19 04:26 Sodium 137.0 Potassium 4.9 Chloride 100 Carbon Dioxide 26 Anion Gap 11 BUN 18 Creatinine 0.94 Est GFR ( Amer) > 60 Glucose 129 H Calcium 9.2 04/02/19 04/02/19 04/02/19 17:40 23:47 23:47 Creatine Kinase 38 L CK-MB (CK-2) 1.22 Troponin I 0.024 0.019 NT-Pro-B Natriuret Pep 7800 H 04/03/19 04/03/19 04/03/19 05:38 05:38 11:38 Creatine Kinase 33 L 35 L CK-MB (CK-2) 1.06 Troponin I 0.023 NT-Pro-B Natriuret Pep 04/03/19 11:38 Creatine Kinase CK-MB (CK-2) 1.07 Troponin I 0.016 NT-Pro-B Natriuret Pep Impressions: Thoracentesis Ultrasound 04/03/19 00:00 IMPRESSION: SUCCESSFUL THORACENTESIS USING ULTRASOUND GUIDANCE. Chest X-Ray 04/03/19 16:45 IMPRESSION: No pneumothorax. Considerable opacification in the left base remains. Assessment and Plan - Diagnosis (1) Congestive heart failure (CHF) Qualifiers: Heart failure type: systolic Heart failure chronicity: acute on chronic Qualified Code(s): I50.23 - Acute on chronic systolic (congestive) heart failure Is this a current diagnosis for this admission?: Yes Plan: Overall he is improved but he still volume overloaded. He is responding well to diuretics. We will try to make sure he is medically optimized by the time he is discharged. We will also try to get him set up with a machine engineer locally. Still trying to get records from his facilities in [place] where he is previously been seen. (2) Diabetes Qualifiers: Diabetes mellitus type: type 2 Is this a current diagnosis for this admission?: Yes Plan: Humalog sliding scale, diabetic diet (3) Recurrent left pleural effusion Is this a current diagnosis for this admission?: Yes Plan: Status post thoracentesis. Going to try to make sure we keep him in a net negative fluid balance. Will monitor for reaccumulation and for pneumothorax. Postthoracentesis films were negative for pneumothorax. No chest pain or shortness of breath at this time. - Time Time Spent with patient: 15-24 minutes
[2019-04-05] MEDS: HEPARIN SOD (PORCINE) 5,000 UNIT/ML 1 ML VIAL SUBCUT SCH ×3 (05:19→23:29)
[2019-04-05] MEDS: INSULIN LISPRO 100 UNIT/ML 3 ML VIAL SUBCUT SCH ×3 (08:19→17:17)
[2019-04-05] MEDS: RAMIPRIL 5 MG CAPSULE PO SCH (09:42)
[2019-04-05] MEDS: DOCUSATE SODIUM 100 MG CAPSULE PO SCH (09:43)
[2019-04-05] MEDS: FUROSEMIDE INJ/PF 40 MG/4 ML SDV IV SCH ×2 (09:43→23:29)
[2019-04-05] MEDS: NITROGLYCERIN 5 MG (0.2 MG/HR) PATCH.TD24 TD SCH (13:23)
[2019-04-05] MEDS: METOPROLOL TARTRATE 25 MG TABLET PO SCH (13:23)
--- NOTE | 2019-04-05 15:35 | PDOC PROGRESS REPORT ---
Subjective Progress Note for:: 04/05/19 Subjective:: No adverse events overnight. No new complaints. He says he feels like his breathing is better. He is not been measuring his urine output. Encouraged him to make sure that he goes into the urinal so we can correctly categorize his ins and outs. Reason For Visit: HEART FAILURE C PLEURAL EFF Physical Exam Vital Signs: Temp Pulse Resp BP Pulse Ox 97.4 F 77 16 100/64 99 04/05/19 11:49 04/05/19 11:49 04/05/19 11:49 04/05/19 11:49 04/05/19 11:49 Intake & Output 04/04/19 04/05/19 04/06/19 06:59 06:59 06:59 Intake Total 730 1182 Output Total 375 Balance 355 1182 Weight 99.1 kg 99 kg General appearance: PRESENT: no acute distress, cooperative, disheveled, obese Neck exam: ABSENT: JVD Respiratory exam: PRESENT: decreased breath sounds - Left base, crackles left base, unlabored. ABSENT: accessory muscle use, chest wall tenderness, prolonged expiratory phas, rhonchi, symmetrical, tachypnea, wheezes Cardiovascular exam: PRESENT: RRR, +S1, +S2 Pulses: PRESENT: normal carotid pulses Vascular exam: PRESENT: normal capillary refill GI/Abdominal exam: PRESENT: normal bowel sounds, soft. ABSENT: distended, guarding, rebound, tenderness Extremities exam: PRESENT: pedal edema, +2 edema - Ankles and pretibial areas. ABSENT: clubbing Musculoskeletal exam: PRESENT: normal inspection. ABSENT: deformity Neurological exam: PRESENT: alert, awake, oriented to person, oriented to place, oriented to time, oriented to situation Psychiatric exam: PRESENT: appropriate affect, normal mood Skin exam: PRESENT: dry, warm Results Laboratory Results: 04/03/19 05:38 04/04/19 04:26 04/05/19 14:30 Magnesium 2.3 04/02/19 04/02/19 04/02/19 17:40 23:47 23:47 Creatine Kinase 38 L CK-MB (CK-2) 1.22 Troponin I 0.024 0.019 NT-Pro-B Natriuret Pep 7800 H 04/03/19 04/03/19 04/03/19 05:38 05:38 11:38 Creatine Kinase 33 L 35 L CK-MB (CK-2) 1.06 Troponin I 0.023 NT-Pro-B Natriuret Pep 04/03/19 11:38 Creatine Kinase CK-MB (CK-2) 1.07 Troponin I 0.016 NT-Pro-B Natriuret Pep Impressions: Thoracentesis Ultrasound 04/03/19 00:00 IMPRESSION: SUCCESSFUL THORACENTESIS USING ULTRASOUND GUIDANCE. Chest X-Ray 04/03/19 16:45 IMPRESSION: No pneumothorax. Considerable opacification in the left base remains. Assessment and Plan - Diagnosis (1) Congestive heart failure (CHF) Qualifiers: Heart failure type: systolic Heart failure chronicity: acute on chronic Qualified Code(s): I50.23 - Acute on chronic systolic (congestive) heart failure Is this a current diagnosis for this admission?: Yes Plan: We will continue with diuresis. Stressed to him the importance of allowing us to measure his urine output. Have switched his Lopressor to Toprol XL. We will make sure he is medically optimized at time of discharge. We will make sure he is got follow-up with a local service center supervisor. (2) Diabetes Qualifiers: Diabetes mellitus type: type 2 Is this a current diagnosis for this admission?: Yes Plan: Humalog sliding scale, diabetic diet (3) Recurrent left pleural effusion Is this a current diagnosis for this admission?: Yes Plan: Status post thoracentesis. Going to try to make sure we keep him in a net negative fluid balance. Will monitor for reaccumulation and for pneumothorax. Postthoracentesis films were negative for pneumothorax. No chest pain or shortn ess of breath at this time. - Time Time Spent with patient: 15-24 minutes
[2019-04-06] MEDS: HEPARIN SOD (PORCINE) 5,000 UNIT/ML 1 ML VIAL SUBCUT SCH ×2 (06:29→13:52)
[2019-04-06] MEDS: INSULIN LISPRO 100 UNIT/ML 3 ML VIAL SUBCUT SCH ×3 (09:12→16:55)
[2019-04-06] MEDS: FUROSEMIDE INJ/PF 40 MG/4 ML SDV IV SCH (09:13)
[2019-04-06] MEDS: RAMIPRIL 5 MG CAPSULE PO SCH (09:13)
[2019-04-06] MEDS: DOCUSATE SODIUM 100 MG CAPSULE PO SCH (09:14)
[2019-04-06] MEDS ORDERED: METOPROLOL SUCCINATE 25 MG TAB.SR.24H PO SCH (10:00)
[2019-04-06] MEDS: NITROGLYCERIN 5 MG (0.2 MG/HR) PATCH.TD24 TD SCH (11:02)
--- NOTE | 2019-04-06 12:24 | RADIOLOGY REPORT (SQ) ---
EXAM DESCRIPTION: CHEST SINGLE VIEW COMPLETED DATE/TIME: 04/06/2019 12:12 pm REASON FOR STUDY: pleural effusion COMPARISON: 04/03/2019. FINDINGS: Single-view chest AP portable upright. For left basilar aeration, similar. Dense consolidation with pleural effusion. Right lung clear. N o pneumothorax. TECHNICAL DOCUMENTATION: JOB ID: [id number] Reading location - IP/workstation name: [email or web address]
--- NOTE | 2019-04-06 16:12 | PDOC DISCHARGE SUMMARY ---
General - Admit/Disc Date/PCP Admission Date/Primary Care Provider: 04/02/19 19:53 Discharge Date: 04/06/19 - Discharge Diagnosis (1) Congestive heart failure (CHF) Is this a current diagnosis for this admission?: Yes Summary: He was found to have a reduced EF. He is not really followed up with a doctor since he moved here over a year ago but is somehow still gotten his prescrip tions. We have medically optimized him per the recommendations of Dr. Reyes, with whom he will follow-up as an outpatient. (2) Diabetes Is this a current diagnosis for this admission?: Yes Summary: Controlled with a sliding scale, he will continue his home Lantus (3) Recurrent left pleural effusion Is this a current diagnosis for this admission?: Yes Summary: Had a thoracentesis with good effect. Repeat chest x-ray showed that it did not reaccumulate. Breathing improved. - Additional Information Resuscitation Status: Full Code Discharge Diet: Cardiac, Diabetic, Other (Comments) - 1500 ml fluid restriction per day Discharge Activity: Activity As Tolerated, Balance Activity w/Rest, Weigh Daily Prescriptions: Ramipril [Altace 5 mg Capsule] 5 mg PO DAILY #30 capsule Metoprolol Succinate [Toprol Xl 25 mg Tab.sr] 25 mg PO DAILY #30 tab.sr.24h Home Medications: Clopidogrel Bisulfate [Plavix 75 mg Tablet] 75 mg PO DAILY 04/03/19 Furosemide [Lasix 40 mg Tablet] 40 mg PO DAILY 04/03/19 Insulin Glargine,Hum.rec.anlog [Lantus Insulin 100 Unit/1 ml 10 ml] 10 units SQ QHS 04/03/19 Potassium Chloride [K-Tab ER] 10 mg PO DAILY 04/03/19 Metoprolol Succinate [Toprol Xl 25 mg Tab.sr] 25 mg PO DAILY #30 tab.sr.24h 04/06/19 Ramipril [Altace 5 mg Capsule] 5 mg PO DAILY #30 capsule 04/06/19 History of Present Illness History of Present Illness: JANUSZ SCHULTZ is a 58 year old male with a past medical history of diabetes, hypertension, coronary artery disease and congestive heart failure status post AICD. He presents with 3 or 4 days of exertional shortness of breath, orthopnea and leg edema. In the emergency room is found to have a large left-sided pleura l effusion and a BNP of 7800. He receives IV Lasix and referred to the hospitalist for admission. Patient admits diet, medication and lifestyle indiscretion. He denies sleep apnea, chest pain nausea vomiting diaphoresis or palpitations. He cannot recall a recent echocardiogram. Hospital Course Hospital Course: He responded very well to diuretics. We put him on a beta-aiden and PALMIRA inhibitor. We got about 5.5 kg of fluid off. We had about a liter of fluid drained from his chest. He said he is gotten a pleural effusion on that side before, the left side. He already has a defibrillator. EF was 20 to 25%. His insurance is pending since he moved down here and we got him on a regimen recommended by Dr. Reyes, who agreed to follow him outside the hospital. His labs and examination were reassuring and he was discharged in good conditi on. Physical Exam Vital Signs: Temp Pulse Resp BP Pulse Ox 97.4 F 74 17 105/71 98 04/06/19 11:21 04/06/19 14:00 04/06/19 11:21 04/06/19 11:21 04/06/19 11:21 Intake & Output 04/05/19 04/06/19 04/07/19 06:59 06:59 06:59 Intake Total 1182 980 480 Output Total 875 Balance 1182 105 480 Weight 99 kg 94.2 kg General appearance: PRESENT: no acute distress, cooperative, disheveled, obese Neck exam: ABSENT: JVD Respiratory exam: PRESENT: decreased breath sounds - Left base, crackles left base, unlabored. ABSENT: accessory muscle use, chest wall tenderness, prolonged expiratory phas, rhonchi, symmetrical, tachypnea, wheezes Cardiovascular exam: PRESENT: RRR, +S1, +S2 Pulses: PRESENT: normal carotid pulses Vascular exam: PRESENT: normal capillary refill GI/Abdominal exam: PRESENT: normal bowel sounds, soft. ABSENT: distended, guarding, rebound, tenderness Extremities exam: PRESENT: pedal edema, +2 edema - Ankles and pretibial areas. ABSENT: clubbing Musculoskeletal exam: PRESENT: normal inspection. ABSENT: deformity Neurological exam: PRESENT: alert, awake, oriented to person, oriented to place, oriented to time, oriented to situation Psychiatric exam: PRESENT: appropriate affect, normal mood Skin exam: PRESENT: dry, warm Results Laboratory Results: 04/03/19 05:38 04/04/19 04:26 04/02/19 04/02/19 04/02/19 17:40 23:47 23:47 Creatine Kinase 38 L CK-MB (CK-2) 1.22 Troponin I 0.024 0.019 NT-Pro-B Natriuret Pep 7800 H 04/03/19 04/03/19 04/03/19 05:38 05:38 11:38 Creatine Kinase 33 L 35 L CK-MB (CK-2) 1.06 Troponin I 0.023 NT-Pro-B Natriuret Pep 04/03/19 11:38 Creatine Kinase CK-MB (CK-2) 1.07 Troponin I 0.016 NT-Pro-B Natriuret Pep Impressions: Thoracentesis Ultrasound 04/03/19 00:00 IMPRESSION: SUCCESSFUL THORACENTESIS USING ULTRASOUND GUIDANCE. Qualifiers - * PATIENT BEING DISCHARGED WITH ANY OF THE FOLLOWING DIAGNOSIS: No Acute Heart Failure - Is this a Heart Failure Patient?: Yes Documentation of LVEF assessment?: Yes LVEF < 40%?: Yes-if yes answer questions a through e a) Discharged on ACEI?: Yes b) Discharges on ARB?: No-document contraindications Reason(s) not discharged on ARB: Other - Discharged on PALMIRA inhibitor c) Discharged on ARNI?: No-Document Contraindications Reason(s) not discharged on ARNI: Other - Discharged on PALMIRA inhibitor because he currently cannot afford Entresto d) Discharged on evidence-based Beta aiden(carvedilol, sustained release metoprolol succinate, or bisoprolol)?: Yes e) For LVEF <35%, discharged on Aldosterone antagonist?: No-document contraincations Reason(s) not discharged on Aldosterone antagonist for LVEF < 35%: Other - Not recommended by cardiology at this time 3. Anticoagulant therapy for permanect/persistent/paraoxysmal Afib or Aflutter: N/A Follow-up Appointment scheduled within 7 days?: Yes Plan Time Spent: Greater than 30 Minutes
[2019-04-06 17:49] VITALS: BP 116/75
== END 2019-04-06 18:10 | disposition home or self-care (01) | DRG 292 ==
LOC: ER 16:22 → EH 19:53 → 3N 22:15
PROVIDERS: ADMIT Internal Medicine; ATTEND Internal Medicine
PROC: 0W9B3ZZ Drainage of Left Pleural Cavity, Percutaneous Approach (ICD-10-PCS; principal; 2019-04-03)
DX: I50.23 Acute on chronic systolic (congestive) heart failure (principal); J91.8 Pleural effusion in other conditions classified elsewhere; R07.9 Chest pain, unspecified; I48.91 Unspecified atrial fibrillation; E78.5 Hyperlipidemia, unspecified; E11.8 Type 2 diabetes mellitus with unspecified complications; Z95.810 Presence of automatic (implantable) cardiac defibrillator; Z79.01 Long term (current) use of anticoagulants; Z79.4 Long term (current) use of insulin; Z79.899 Other long term (current) drug therapy
CPT/HCPCS: 32555; 36415; 71045; 80048; 80053; 80307; 82550; 82553; 82962; 83036; 83735; 83880; 84443; 84484; 85025; 85610; 93005; 93010; 93306; 94660; 96374; 99285; J1644; J1815; J1940; J3490